=== PATIENT | female | born 1965 | race Caucasian/White ===

== ENCOUNTER → 2025-04-17 | Outpatient (CLI) | payer OTHER | END | disposition home or self-care (01) | LOC: MRI 02:37 | PROVIDERS: ATTEND Orthopaedic Surgery | DX: M70.21 Olecranon bursitis, right elbow (principal); M25.421 Effusion, right elbow; M77.8 Other enthesopathies, not elsewhere classified ==

== ENCOUNTER 2025-04-27 21:22 | Inpatient (IN) | payer OTHER ==
[~2025-04-27] VITALS: Ht 165.1 cm; Wt 77.2 kg
[2025-04-27 21:52] VITALS: BP 128/113
[2025-04-27] MEDS ORDERED: Ondansetron Hydrochloride 4 MG/2 ML VIAL IV ONE (21:55)
[2025-04-27] MEDS ORDERED: HYDROmorphONE Hydrochloride 0.5 MG/0.5 ML SYRINGE IV ONE ×2 (22:20→23:25)
[2025-04-27 22:25] LABS: BASO # 0.1 10*3/uL (0.0-0.1); BASO % 0.8 % (0.0-1.0); EOS # 0.1 10*3/uL (0.0-0.4); EOS % 0.4 % (1.0-4.0); MEAN CELL VOLUME 93.4 fl (81.0-99.0); MEAN CORPUSCULAR HGB 31.7 pg (27.0-31.0); MEAN PLATELET VOLUME 9.9 fl (9.6-12.3); MONO # 0.5 10*3/uL (0.1-1.0); MONO % 3.3 % (3.0-9.0); NEUT # 11.3 10*3/uL (2.3-7.9); NEUT % 82.1 % (47.0-73.0); NUCLEATED RED BLOOD CELL 0.0 % (0.0-0.0); NUCLEATED RED BLOOD CELL 0.0 10*3/uL (0.0-0.0); PLATELET COUNT AUTOMATED 366 10*3/uL (130-400); RED CELL DISTRI WIDTH 12.2 % (0-14.5)
[2025-04-27] MEDS ORDERED: Ondansetron Hydrochloride 4 MG/2 ML VIAL ONE (22:39)
[2025-04-27 22:47] LABS: BUN 18.0 mg/dl (9-23); SGPT/ALT 22.0 U/L (5-49)
[2025-04-27] MEDS ORDERED: HYDROmorphONE Hydrochloride 0.5 MG/0.5 ML SYRINGE ONE ×3 (23:14→23:58)
[2025-04-27] MEDS ORDERED: SODIUM CHLORIDE 0.9% 1,000 ML IV ONE ×2 (23:20→23:59)
[2025-04-27] MEDS ORDERED: FUROSEMIDE20 M1 PO (23:52)
[2025-04-27] MEDS ORDERED: ROSUVASTATIN CA10 MG PO (23:52)
[2025-04-27] MEDS ORDERED: FEBUXOSTAT40 MG PO (23:53)
[2025-04-28] VITALS (11 sets, daily range): BP systolic 103–155; BP diastolic 47–96
[2025-04-28] MEDS ORDERED: ACETAMINOPHEN 325 MG TAB PO PRN (00:10)
[2025-04-28] MEDS ORDERED: BISACODYL 5 MG TAB PO PRN (00:10)
[2025-04-28] MEDS ORDERED: Acetaminophen/Hydrocodone 5 MG/325 MG TABLET PO PRN (00:10)
[2025-04-28] MEDS ORDERED: Ondansetron Hydrochloride 4 MG/2 ML VIAL IV PRN (00:10)
[2025-04-28] MEDS ORDERED: Potassium Bicarbonate/Potass 25 MEQ TAB PO ONE ×2 (00:55→03:40)
[2025-04-28] MEDS ORDERED: ACETAMINOPHEN 325 MG TAB ONE (02:59)
[2025-04-28 06:41] LABS: BASO # 0.0 10*3/uL (0.0-0.1); BASO % 0.2 % (0.0-1.0); EOS # 0.0 10*3/uL (0.0-0.4); EOS % 0.0 % (1.0-4.0); MEAN CELL VOLUME 91.4 fl (81.0-99.0); MEAN CORPUSCULAR HGB 31.5 pg (27.0-31.0); MEAN PLATELET VOLUME 10.0 fl (9.6-12.3); MONO # 1.4 10*3/uL (0.1-1.0); MONO % 8.1 % (3.0-9.0); NEUT # 14.9 10*3/uL (2.3-7.9); NEUT % 85.1 % (47.0-73.0); NUCLEATED RED BLOOD CELL 0.0 % (0.0-0.0); NUCLEATED RED BLOOD CELL 0.0 10*3/uL (0.0-0.0); PLATELET COUNT AUTOMATED 322 10*3/uL (130-400); RED CELL DISTRI WIDTH 12.6 % (0-14.5)
[2025-04-28 06:43] LABS: ACT PARTIAL THROMBO TIME 25.0 SECONDS (20.0-32.1)
[2025-04-28 07:01] LABS: VITAMIN D, 25-HYDROXY 28.4 ng/mL (30-100)
[2025-04-28 07:02] LABS: BUN 20.0 mg/dl (9-23); FREE T4 1.27 ng/dl (0.89-1.76); LDL CHOLESTEROL 59.0 mg/dL (9-159); SGPT/ALT 29.0 U/L (5-49)
[2025-04-28] MEDS ORDERED: ATORVASTATIN CALCIUM 40 MG TABLET ONE (09:16)
[2025-04-28] MEDS ORDERED: Cholecalciferol 2,000 UNIT TABLET (50 MCG) ONE (09:16)
[2025-04-28] MEDS ORDERED: Cholecalciferol 2,000 UNIT TABLET (50 MCG) PO SCH (10:00)
[2025-04-28] MEDS ORDERED: ATORVASTATIN CALCIUM 40 MG TABLET PO SCH (10:00)
[2025-04-28] MEDS ORDERED: FUROSEMIDE 20 MG TAB PO SCH (10:00)
[2025-04-28] MEDS ORDERED: ACETAMINOPHEN 100 ML IV ONE (12:37)
[2025-04-28] MEDS ORDERED: Lactated Ringer's Solution 1,000 ML IV ONE ×2 (12:37→14:09)
[2025-04-28] MEDS ORDERED: HYDROmorphONE Hydrochloride 0.5 MG/0.5 ML SYRINGE IV PRN (14:35)
[2025-04-28] MEDS ORDERED: PROPOFOL 200 MG/20 ML VIAL IV ONE (15:54)
[2025-04-28] MEDS ORDERED: Dexamethasone Sodium Phospha 4 MG/ML VIAL IV ONE (15:54)
[2025-04-28] MEDS ORDERED: Phenylephrine Hydrochloride 1 MG/10 ML SYRINGE IV ONE (15:54)
[2025-04-28] MEDS ORDERED: Ondansetron Hydrochloride 4 MG/2 ML VIAL IV ONE (15:54)
[2025-04-28] MEDS ORDERED: ROCURONIUM BROMIDE 50 MG/5 ML SYRINGE IV ONE (15:54)
[2025-04-28] MEDS ORDERED: Lidocaine Hydrochloride 2% 5 ML SDV IM ONE (15:54)
[2025-04-28] MEDS ORDERED: SUGAMMADEX SODIUM 200 MG/2 ML VIAL IV ONE (15:54)
[2025-04-28] MEDS ORDERED: SEVOFLURANE 250 ML BOT INH ONE (15:54)
[2025-04-28] MEDS ORDERED: Ondansetron4 MG PO (17:00)
[2025-04-28] MEDS ORDERED: HYDROCODONE-AC1 EAC1 PO (17:00)
== END 2025-04-28 17:55 | disposition home or self-care (01) | DRG 418 ==
LOC: ED 21:22 → EDHOLD 23:34 → 5E 23:34
PROVIDERS: Internal Medicine; ADMIT Internal Medicine; ATTEND Internal Medicine
PROC: 0FT44ZZ Resection of Gallbladder, Percutaneous Endoscopic Approach (ICD-10-PCS; principal; 2025-04-28)
DX: K80.10 Calculus of gallbladder with chronic cholecystitis without obstruction (principal); N17.9 Acute kidney failure, unspecified; E83.52 Hypercalcemia; E87.6 Hypokalemia; N18.9 Chronic kidney disease, unspecified; M10.9 Gout, unspecified; E78.5 Hyperlipidemia, unspecified; K83.8 Other specified diseases of biliary tract; R73.9 Hyperglycemia, unspecified; D72.825 Bandemia; R16.0 Hepatomegaly, not elsewhere classified; I70.0 Atherosclerosis of aorta; Z83.3 Family history of diabetes mellitus; Z90.710 Acquired absence of both cervix and uterus